=== PATIENT | female | born 1945 | race Caucasian/White ===

== ENCOUNTER → 2018-10-04 | Outpatient (CLI) | payer MEDICARE, OTHER ==
[~2018-10-04] MED LIST: ALP5 PO; CALC-734 PO; CEPH-13 PO; CHOL200025 PO; FLUOD OS; GANC5GEL OP; HYDR-385 PO; MAGN250T34 PO; MULT1TAB64 PO; OMEG300C PO; PNEU0.5D3 IM; PRED15SO74 PO; PYRI50TA88 PO; ST.1POWD MC; TURM500C7 PO; VALA500T63 PO; [UNRECOGNIZED DRUG - CODE] PO; [UNRECOGNIZED DRUG - CODE] PO; [UNRECOGNIZED DRUG - CODE] PO; [UNRECOGNIZED DRUG - OTHER] PO
== END ==
LOC: LAB 10:07
PROVIDERS: ATTEND Emergency Medicine
DX: D75.89 Other specified diseases of blood and blood-forming organs (principal); G62.9 Polyneuropathy, unspecified
CPT/HCPCS: 36415; 82746

== ENCOUNTER → 2018-10-18 | Outpatient (CLI) | payer MEDICARE, OTHER ==
[~2018-10-18] MED LIST changes: +PYRI50TA PO; -PYRI50TA88 PO
== END ==
LOC: LAB 14:27
PROVIDERS: ATTEND Surgery
DX: D23.61 Other benign neoplasm of skin of right upper limb, including shoulder (principal)
CPT/HCPCS: 88305